=== PATIENT | female | born 1990 ===

== ENCOUNTER 2019-06-06 07:37 | Inpatient (IN) ==
[2019-06-06] MEDS ORDERED: OXYTOCIN 30 UNITS/500 ML BAG IV PRN ×2 (07:54→11:05)
[2019-06-06] MEDS ORDERED: LACTATED RINGER'S 1,000 ML IV PRN (07:54)
[2019-06-06] MEDS ORDERED: PENICILLIN G POTASSIUM 6 MU in DEXTROSE 5% 250 ML IV STA (07:54)
[2019-06-06] MEDS ORDERED: PENICILLIN G POTASSIUM 3 MU in DEXTROSE 5% 100 ML IV PRN (07:54)
[2019-06-06 08:25] LABS: Hematocrit (blood only) 38.4 % (37-47); Mean Corpuscular Hemoglobin 29.1 pg (25-34); Mean Corpuscular Volume 85.9 fL (80-100); Mean Platelet Volume 10.2 fL (7.4-10.4); Platelet Count 208 K/uL (130-400); RDW Coefficient of Variation 13.7 % (11.5-14.5); RDW Standard Deviation 42.9 fL (36.4-46.3); Red Blood Count 4.47 M/uL (4.2-5.4); White Blood Count 16.79 K/uL (4.8-10.8)
[2019-06-06 08:49] LABS: Mean Corpuscular Hgb Conc 33.9 g/dL (32-36)
--- NOTE | 2019-06-06 08:50 | History & Physical Report ---
Date of Service June 06, 2019 Assessment & Plan (1) GBS (group B Streptococcus carrier), +RV culture, currently : Will attempt to get some pcn on board (2) with 39 completed weeks gestation: Will begin second stage once iv started. fetus reassuring. anticipate . History of Present Illness Chief Complaint: contractions Primary Care Provider: Shayla Lyn DO Patient is a 29yowf who is at 39 5/7 weeks who presents to labor and delivery with contractions. Initially called at about 2 am but did not show up til about 8 am. Had not had rom until checked by nursing. no vb. +fm. GBS positive. Patient is heterozygote for Factor V leiden . has been es sentially uncomplicated. GBS positive. Allergies Allergy/AdvReac Type Severity Reaction Status Date / Time No Known Drug Allergies Allergy Verified 06/03/19 08:38 Home Medications Home Medications Medication Instructions Recorded Confirmed Type [id number] 1 tab PO DAILY 03/07/19 06/06/19 History Patient History Medical History Factor 5 Leiden mutation, heterozygous History of chicken pox History of ovarian cyst Surgical History S/P wisdom tooth extraction Family History Mother Factor V and factor VIII deficiency Thrombophilia Uncle Cardiac disorder maternal Social History marital status: Current Living Situation: Spouse current occupational status: employed current occupation: association executive @ [employer] Smoking Status: Never smoker Hx Alcohol Use: No Hx Substance Use: No OB History g1--present [employer] History no stds, no abnl paps Review of Systems All systems reviewed & are unremarkable except as noted in HPI & below Physical Exam Constitutional: WD/WN, vitals as above Gastrointestinal (Abdomen): soft, nt, gravid Psychiatric: A+Ox3, euthymic affect Genitourinary: cx--c/c/+1 arom , clear with check q4min efm--category one Results & Data Vital Signs (Past 12 Hours) Vital Signs Temp Pulse Resp BP 06/06/19 07:42 36.6 C 102 H 20 118/72 Code Status & VTE Plan VTE Prophylaxis Plan VTE Prophylaxis will be ordered: No
[2019-06-06] MEDS ORDERED: ACETAMINOPHEN 325 MG TAB PO PRN (10:25)
[2019-06-06] MEDS ORDERED: LOVENOX TEACHING KIT PRN (10:27)
[2019-06-06] MEDS ORDERED: BENZOCAINE 20% AER SPR 82.5 GM CAN EXT PRN (11:05)
[2019-06-06] MEDS ORDERED: BISACODYL 10 MG SUPP PR PRN (11:05)
[2019-06-06] MEDS ORDERED: DIPHTHERIA/TETANUS/PERTUSSIS 0.5 ML SYR/VIAL IM ONE (11:05)
[2019-06-06] MEDS ORDERED: SUPERCREAM 0.870% 15 GM JAR EXT PRN (11:05)
[2019-06-06] MEDS ORDERED: HYDROCORTISONE ACETATE 25 MG SUPP PR PRN (11:05)
--- NOTE | 2019-06-06 11:17 | Delivery Summary ---
DATE OF OPERATION: 06/06/2019 PROCEDURE: Normal spontaneous vaginal delivery with second-degree perineal laceration repair. SURGEON: Zach Wells MD. PREOPERATIVE DIAGNOSES: 1. Single intrauterine at 39 weeks 5 days gestational age. 2. Heterozygous factor V Leiden. 3. Group B Streptococcus positive. 4. Active labor. POSTOPERATIVE DIAGNOSES: 1. Single intrauterine at 39 weeks 5 days gestational age. 2. Heterozygous factor V Leiden. 3. Group B Streptococcus positive. 4. Active labor. 5. Status post delivery. ESTIMATED BLOOD LOSS: 300 mL. DRAINS: None. FLUIDS: Continuous lactated Ringer. URINE OUTPUT: Not measured. COMPLICATIONS: None. FINDINGS: Viable with weight pending, Apgars of 8 and 9 at one and five minutes, respectively. INDICATIONS: Ms. Cordova is a 29-year-old G1, P0, at 39 weeks 5 days gestational age, came in in active labor with initial cervical dilation at 10 cm dilated, 100% effaced, positive 1 station. The patient labored down. The patient soon thereafter began pushing to deliver a viable with a weight and Apgars as noted above. The patient received penicillin soon after admission. DESCRIPTION OF PROCEDURE: The patient progressed to 10 cm dilated, 100% effaced, positive 2 station, pushed over an intact perineum without anesthesia and delivered a viable with weight and Apgars as noted above. Head of the delivered in KIMBER position, restituted into right transverse. No nuchal cord was noted. Body and shoulders quickly followed and the was noted to be vigorous soon after delivery. The cord was then double clamped and cut and attention was then turned to cord blood collection, which was completed per recommendations. An attempt to obtain cord blood was then made; however, no significant amount of additional cord blood was obtained. Attention was then turned to the placenta, which was delivered intact with 3-vessel cord with gentle cord traction. On inspection of the perineum, vagina, and cervix, there was noted to be second degree perineal laceration, which was repaired with 3-0 Vicryl in a continuous crown stitch; 17 mL of lidocaine were injected through the laceration for anesthesia. Needle, sponge and instrument counts were correct at the completion of the case. Both mother and were stable in the immediate post-delivery period. I attest to the content of the Intraoperative Record and any orders documented therein. Any exception s are noted below.
[2019-06-06] MEDS: IBUPROFEN 600 MG TAB PO PRN ×3 (16:09→20:33)
[2019-06-06] MEDS: DOCUSATE SODIUM 100 MG CAP PO SCH (20:34)
[2019-06-07] MEDS ORDERED: COUGH DROP (SUGAR FREE) LOZ 24 LOZ/1 BOX BUCCAL PRN (00:08)
--- NOTE | 2019-06-07 06:11 | Obstetrical Progress Note ---
Date of Service <Braden Meyers DO - Last Filed: 06/07/19 06:11> June 07, 2019 Assessment & Plan <DO Leslie Ivey Last Filed: 06/07/19 06:11> (1) : -PPD#1 -Vitals reviewed, Tmax 36.6, patient has been tachycardic yesterday evening currently 93bpm, continue to monitor. - GBS +, Blood Type A+ - Penicillin G prepartum was given - Clinically stable. - Feels well today. Eating well, voiding well, ambulating well. - Pain well controlled. - Routine post- care - After discharge will have [address] Wells. Day #:: 1 Subjective <Braden GoldsmithnDO Nelson Last Filed: 06/07/19 06:11> Ambulation: ambulating normally Voiding: no voiding problems Passing Gas:: Yes Diet Tolerance:: regular diet Lochia:: Large Feeding Type:: breast feeding Current Pain Level(1-10): 3 (improves with analgesics) Patient is a 29 PPD#1. Patient states that she is feeling well today and that her pain is well controlled. She has no other complaints at this time. Constitutional: no fever and no chills Respiratory: no cough, no dyspnea and no wheezing Cardiovascular: no chest pain, no dyspnea, no palpitations, no edema and no calf pain Breast: no breast pain Gastrointestinal: no abdominal pain, no nausea and no vomiting Genitourinary (female): no dysuria and no difficulty urinating Neurologic: no headache(s) Physical Exam <Braden Goldsmitheric DO Nelson Last Filed: 06/07/19 06:11> Constitutional WD/WN, vitals as above Respiratory normal respiratory effort, lungs clear to auscultation Cardiovascular Rate/Rhythm: regular rate and regular rhythm Heart Sounds: normal S1 and normal S2; no click, no gallop, no murmur and no cardiac rub Extremities: no calf tenderness and no edema Gastrointestinal (Abdomen) Inspection/Auscultation: abdomen normal to inspection and normal bowel sounds Percussion/Palpation: abdomen soft; abdomen nontender Genitourinary OB Exam Abdomen: + fundal height Fundus: + firm and + relation to umbilicus (3cm below); not tender and not boggy Results & Data <Braden Meyers, - Last Filed: 06/07/19 06:11> Vital Signs (Past 12 Hours) Vital Signs Temp Pulse Resp BP 06/07/19 04:00 36.4 C L 93 H 18 99/62 L 06/06/19 23:00 36.6 C 92 H 18 100/62 06/06/19 19:45 36.5 C 109 H 18 94/60 L Laboratory Results Abnormal lab results 06/06/19 Range/Units 08:13 WBC 16.79 H (4.8-10.8) K/uL Medications Administered Current Inpatient Medications Acetaminophen (Tylenol) 650 mg PO Q6H PRN PRN Reason: Pain/STREETER/Fever Stop: 07/06/19 10:24 Benzocaine (Dermoplast Pain Relieving [place]) 1 appln EXT PRN PRN PRN Reason: Perineal Discomfort Stop: 07/06/19 11:04 Last Admin: 06/06/19 16:13 Dose: 82.5 appln Documented by: Bisacodyl (Dulcolax) 5 mg PO 2000 [facility] Stop: 06/07/19 20:01 Bisacodyl (Dulcolax) [address] DAILY PRN PRN Reason: No BM on 2nd post- day Stop: 07/06/19 11:04 Cocaine HCl (Supercream 0.870%) 1 gm EXT BID PRN PRN Reason: Hemorrhoidal Inflammation Stop: 06/20/19 11:04 Docusate Sodium (Colace) 100 mg PO DAILY@08,21 [facility] Stop: 07/06/19 20:59 Last Admin: 06/06/19 20:34 Dose: 100 mg Documented by: Enoxaparin Sodium (Lovenox) 40 mg SQ QAM [facility] Stop: 07/07/19 08:59 Hydrocortisone (Anusol Hc) [address] BID PRN PRN Reason: Hemorrhoidal Inflammation Stop: 07/06/19 11:04 Oxytocin (Pitocin) 30 units in 500 mls @ 333.333 mls/hr IV .Q1H30M PRN; Protocol PRN Reason: Bleeding Control Stop: 07/06/19 11:04 Ibuprofen (Motrin) 600 mg PO Q4H PRN PRN Reason: Pain/STREETER/Cramping/Fever Stop: 07/06/19 10:24 Last Admin: 06/06/19 20:33 Dose: 600 mg Documented by: Menthol (Nice) 1 ismael BUCCAL NOW PRN PRN Reason: Sore Throat Stop: 07/07/19 00:07 Last Admin: 06/07/19 00:56 Dose: 1 ismael Documented by: Miscellaneous (Lovenox Teaching Kit) 1 ea N/A PRN PRN PRN Reason: Itching Stop: 07/06/19 10:26 Prenat Multivit/Digital Marketing Assistant/Iron/Folic Ac ( Vitamin) 1 tab PO DAILY@08 [facility] Stop: 07/07/19 07:59 <Zina Hawley MD, FACOG - Last Filed: 06/07/19 08:03> Co-Signing Physician Notes Resident Physician Supervision Note: I interviewed and examined the patient. Discussed with Dr. Meyers and agree with findings and plan as documented in the note. Any exceptions or clarifications are listed here: Doing well. Continued routine PP care. Documented By: Zina Hawley MD, FACOG Resident Activity Tracking <Braden Meyers DO - Last Filed: 06/07/19 06:11> Resident Involvement: Resident Care Provided Care Provided: OB Delivery
[2019-06-07 06:53] LABS: Hematocrit (blood only) 33.1 % (37-47); Hemoglobin 10.9 g/dL (12.0-16.0)
[2019-06-07] MEDS: DOCUSATE SODIUM 100 MG CAP PO SCH ×2 (08:58→20:31)
[2019-06-07] MEDS: IBUPROFEN 600 MG TAB PO PRN ×2 (08:58→13:02)
[2019-06-07] MEDS: PRENATAL VITAMIN 1 TAB PO SCH (08:58)
[2019-06-07 09:50] LABS: Creatinine Clr Calc Pharmacy 141.4 ml/min; Est GFR (African American) 138.1; Est GFR (Non-African American) 119.1
[2019-06-07] MEDS: ENOXAPARIN INJ 40 MG/0.4 ML SYR SQ SCH (10:34)
[2019-06-07] MEDS ORDERED: BISACODYL 5 MG TABEC PO SCH (20:00)
[2019-06-07 20:46] VITALS: O2SAT 98
[2019-06-08] MEDS: ENOXAPARIN INJ 40 MG/0.4 ML SYR SQ SCH (08:31)
[2019-06-08] MEDS: PRENATAL VITAMIN 1 TAB PO SCH (08:32)
[2019-06-08] MEDS: DOCUSATE SODIUM 100 MG CAP PO SCH (08:32)
[2019-06-08] MEDS: IBUPROFEN 600 MG TAB PO PRN (08:43)
--- NOTE | 2019-06-08 08:51 | Obstetrical Progress Note ---
Date of Service June 08, 2019 Assessment & Plan (1) care and examination: 29yo G1 S/p . Doing well Stable for discharge Subjective Ambulation: ambulating normally Voiding: no voiding problems Diet Tolerance:: regular diet Lochia:: Moderate Feeding Type:: breast feeding Physical Exam Constitutional WD/WN, vitals as above Gastrointestinal (Abdomen) Inspection/Auscultation: abdomen normal to inspection; abdomen not distended Percussion/Palpation: abdomen nontender, no guarding and abdomen not rigid Psychiatric A+Ox3, euthymic affect Genitourinary OB Exam Abdomen: + fundal height Fundus: + firm and + relation to umbilicus (Below); not tender Results & Data Vital Signs (Past 12 Hours) Vital Signs Temp Pulse Resp BP Pulse Ox 06/07/19 23:45 36.5 C 94 H 18 110/70 98
[2019-06-08 09:07] VITALS: BP 101/68; TEMP 98.1
[2019-06-08 10:50] VITALS: PULSE 94
== END 2019-06-08 12:25 | disposition home or self-care (01) | DRG 807 ==
LOC: OPB 07:37 → 4S1 07:41 → 4S2 13:27